=== PATIENT | female | born 1995 | race Caucasian/White ===

== ENCOUNTER 2024-03-01 12:41 | Inpatient (IN) | payer MEDICAID, OTHER ==
[2024-03-01 13:56] VITALS: BMI 33.6
[2024-03-01] MEDS ORDERED: Acetaminophen 500 MG TAB PO PRN (14:49)
[2024-03-01] MEDS ORDERED: Tranexamic Acid 1,000 MG/10 ML VIAL IVP PRN (14:49)
[2024-03-01] MEDS ORDERED: Ondansetron PF 4 MG/2 ML Vial IVP PRN ×2 (14:49→17:57)
[2024-03-01] MEDS ORDERED: Docusate 100 MG CAP PO PRN (14:49)
[2024-03-01] MEDS ORDERED: Promethazine HCl 25 MG/ML VIAL IM PRN ×2 (14:49→17:57)
[2024-03-01] MEDS ORDERED: hydrALAZINE 20 MG/ML VIAL SLOW IVP PRN (14:49)
[2024-03-01] MEDS ORDERED: Oxytocin 30 units/NS 500 ML 500 ML IV SCH (15:00)
[2024-03-01] MEDS ORDERED: Bicitra 30 ML UDCUP PO PRN (15:00)
[2024-03-01] MEDS: Famotidine/PF 20 mg/2ml Vial SLOW IVP PRN (15:30)
[2024-03-01] MEDS: Lactated Ringer's 1,000 ML IV SCH (15:31)
[2024-03-01 15:43] LABS: Hematocrit 36.8 % (34.9-44.5); Hemoglobin 11.2 g/dL (12.0-15.5); Mean Corpuscular HGB CONC 30.4 g/dL (32.0-36.0); Mean Platelet Volume 12.9 fL (7.4-10.4); Platelet Count 240 10x3/uL (150-450); RBC Distribution Width 19.9 % (11.5-14.5); Red Blood Cell (RBC) Count 4.66 10x6/uL (3.90-5.03); White Blood Cell (WBC) Count 6.5 10x3/uL (3.5-10.5)
[2024-03-01] MEDS: CEFAZOLIN 2 GM in Sodium Chloride 0.9% 100 ML IVPB SCH (16:13)
[2024-03-01 16:15] LABS: Syphilis Antibody Nonreactive (Nonreactive); Syphilis Antibody Index 0.09 S/CO (<1.00 Non-Reactive)
[2024-03-01 16:16] LABS: HBsAg Index 0.23 S/CO (0-0.99); Hep B Surf Ag - L&D Non-Reactive S/CO (NonReactive)
[2024-03-01] MEDS ORDERED: diphenhydrAMINE 50 MG/ML VIAL IVP PRN (17:57)
[2024-03-01] MEDS ORDERED: Moisturizing Cream (Eucerin) 113 GM JAR TOP PRN (17:57)
[2024-03-01] MEDS ORDERED: Meperidine HCl/PF 25 MG (1 mL) VIAL SLOW IVP PRN (17:57)
[2024-03-01] MEDS ORDERED: Naloxone HCl 0.4 mg/ml Vial IVP PRN ×2 (17:57)
[2024-03-01] MEDS ORDERED: HYDROmorphone 0.5 MG/0.5 ML SYRINGE SLOW IVP PRN (17:57)
[2024-03-01] MEDS ORDERED: Naloxone HCl 0.4 mg/ml Vial IV PRN (17:57)
[2024-03-01] MEDS ORDERED: Communication Order-Pharmacy FS SCH (18:00)
[2024-03-01] MEDS ORDERED: Ketorolac Tromethamine 30 MG (1 mL) VIAL IVP SCH (18:00)
[2024-03-01] MEDS: Misoprostol 200 MCG TAB PR SCH (19:48)
[2024-03-01] MEDS: Methylergonovine 0.2 MG/ML VIAL IM PRN (20:16)
[2024-03-01] MEDS: Carboprost 250 MCG/ML AMP IM PRN (20:44)
[2024-03-01] MEDS: Diphenoxylate HCl/Atropine Tablet PO PRN (20:44)
[2024-03-01] MEDS: fentaNYL 50 mcg/mL 1 mL Vial SLOW IVP PRN (20:44)
[2024-03-01] MEDS: Ondansetron PF 4 MG/2 ML Vial IVP PRN (21:12)
[2024-03-01 21:33] LABS: D-Dimer Test 5.75 mcg/mL (0.19-0.50); INR-International Normal Ratio 0.9; PTT 25.6 sec (22.0-33.0); Prothrombin Time 9.9 sec (9.5-12.1)
[2024-03-02] MEDS ORDERED: Methylergonovine 0.2 MG/ML VIAL IM PRN (00:08)
[2024-03-02] MEDS ORDERED: hydrALAZINE 20 MG/ML VIAL SLOW IVP PRN (00:08)
[2024-03-02] MEDS ORDERED: Ondansetron PF 4 MG/2 ML Vial IVP PRN (00:08)
[2024-03-02] MEDS ORDERED: diphenhydrAMINE 25 MG CAP PO PRN (00:08)
[2024-03-02] MEDS ORDERED: Misoprostol 200 MCG TAB PR PRN (00:08)
[2024-03-02] MEDS ORDERED: Lanolin Ointment 7 GM TUBE TOP PRN (00:08)
[2024-03-02] MEDS ORDERED: Oxytocin 30 units/NS 500 ML 500 ML IV SCH (00:30)
[2024-03-02 04:33] LABS: Hematocrit 30.2 % (34.9-44.5); Hemoglobin 9.4 g/dL (12.0-15.5); Mean Corpuscular HGB CONC 31.1 g/dL (32.0-36.0); Mean Platelet Volume 12.6 fL (7.4-10.4); Platelet Count 204 10x3/uL (150-450); RBC Distribution Width 19.4 % (11.5-14.5); Red Blood Cell (RBC) Count 3.92 10x6/uL (3.90-5.03); White Blood Cell (WBC) Count 13.2 10x3/uL (3.5-10.5)
[2024-03-02] MEDS: Morphine PF 10 MG/10 ML VIAL ONE (05:04)
[2024-03-02] MEDS: fentaNYL 50 mcg/mL 1 mL Vial ONE (05:05)
[2024-03-02] MEDS: Dexamethasone 10 MG/ML VIAL ONE (05:05)
[2024-03-02] MEDS: Oxytocin 10 UNITS/ML VIAL ONE (05:05)
[2024-03-02] MEDS: Ondansetron PF 4 MG/2 ML Vial ONE (05:05)
[2024-03-02] MEDS: Phytonadione Neonatal 1 MG/0.5 ML AMP ONE (05:06)
[2024-03-02] MEDS: Erythromycin Base 0.5% Oint 1 GM TUBE ONE (05:06)
[2024-03-02] MEDS: Ketorolac Tromethamine 30 MG (1 mL) VIAL ONE (05:06)
[2024-03-02] MEDS: Phenylephrine 40 MG/NS 250 ML 250 ML ONE (05:06)
[2024-03-02] MEDS: Ketorolac Tromethamine 30 MG (1 mL) VIAL IVP PRN (05:32)
[2024-03-02] MEDS ORDERED: HYDROcodone/Acetaminophen 5/325 mg Tablet PO PRN (06:00)
[2024-03-02] MEDS: Boostrix 0.5 ML (Tdap) VIAL (>/=7 yrs of age) IM ONE (07:17)
[2024-03-02] MEDS: Ferrous Sulfate 325 MG TAB PO SCH ×2 (07:17→08:06)
[2024-03-02] MEDS: Docusate 100 MG CAP PO SCH ×2 (07:17→08:06)
[2024-03-02] MEDS: Prenatal Vitamin 1 TAB PO SCH (08:06)
[2024-03-02] MEDS: HYDROcodone/Acetaminophen 5/325 mg Tablet PO PRN (08:07)
[2024-03-02] MEDS: Ibuprofen 800 MG TAB PO SCH (21:01)
[2024-03-03 04:32] LABS: Hematocrit 27.5 % (34.9-44.5); Hemoglobin 8.3 g/dL (12.0-15.5)
[2024-03-03 11:31] VITALS: BP 115/56; TEMP 98.3
[2024-03-03] MEDS: Simethicone Chewable 80 MG TAB PO PRN (14:04)
== END 2024-03-03 19:00 | disposition home or self-care (01) | DRG 787 ==
LOC: CSHLD 12:41 → CSHPED 23:05
PROVIDERS: ADMIT Family Medicine; ATTEND Family Medicine
PROC: 10D00Z1 Extraction of Products of Conception, Low, Open Approach (ICD-10-PCS; principal; 2024-03-01)
DX: O34.211 Maternal care for low transverse scar from previous cesarean delivery (principal); D62 Acute posthemorrhagic anemia; O72.1 Other immediate postpartum hemorrhage; Z3A.40 40 weeks gestation of pregnancy; O48.0 Post-term pregnancy; Z37.0 Single live birth; O99.214 Obesity complicating childbirth; E66.9 Obesity, unspecified; Z79.82 Long term (current) use of aspirin; Z79.899 Other long term (current) drug therapy; O90.81 Anemia of the puerperium
CPT/HCPCS: 36415; 51702; 85014; 85018; 85027; 85049; 85300; 85362; 85384; 85610; 85730; 86780; 86850; 86900; 86901; 87340; J1100; J1885; J2210; J2274; J2405; J2590; J3010; J3490; J7120

== ENCOUNTER 2024-03-11 19:48 | Emergency (ER) | payer MEDICAID | END 2024-03-11 22:15 | disposition home or self-care (01) | LOC: CSHERS 19:48 | DX: T81.30XA Disruption of wound, unspecified, initial encounter (principal) | CPT/HCPCS: 99283 ==